=== PATIENT | female | born 1960 | race Caucasian/White ===

== ENCOUNTER 2017-03-11 11:17 | Emergency (ER) | payer BC ==
[~2017-03-11] VITALS: Ht 165.1 cm; Wt 99.8 kg
[2017-03-11 11:20] VITALS: BP 139/75; PULSE 78; RESP 16; TEMP 96.7; O2SAT 98
--- NOTE | 2017-03-11 11:29 | NUR ---
ER at bedside examining patient.
--- NOTE | 2017-03-11 11:30 | NUR ---
PT CAME IN FOR RIGHT SIDE KNEE PAIN, HX FALLING DOWN ON A CARPET YESTERDAY AT WORK. "I LOST MY BALANCE". SKIN INTACT, NO REDNESS, NO BUMPS.
[2017-03-11] MEDS ORDERED: KETOROLAC TROMETHAMINE 60 MG/2 ML VIAL IM ONE (11:45)
[2017-03-11 12:10] VITALS: RESP 18
--- NOTE | 2017-03-11 12:11 | NUR ---
TORADOL 60 MG IM WAS ADMINISTERED FOR RT KNEE PAIN.
--- NOTE | 2017-03-11 12:33 | NUR ---
RIGHT KNEE XRAY DONE.
--- NOTE | 2017-03-11 12:40 | NUR ---
PT STATED GOOD RELIEF OF DISCOMFORT AFTER INTERVENTION.
--- NOTE | 2017-03-11 13:33 | NUR ---
Patient given written and verbal discharge instructions and verbalizes understanding. ER MD DR MERCADO discussed with patient the results and treatment provided. Given copies of tests performed in ER. Patient in stable condition. ID arm band removed. Rx of IBUPROFEN given. Patient educated on pain management and to follow up with PMD. Pain Scale 0. Opportunity for questions provided and answered.
== END 2017-03-11 13:33 | disposition home or self-care (01) ==
LOC: SED 11:17
DX: S80.01XA Contusion of right knee, initial encounter (principal); E11.9 Type 2 diabetes mellitus without complications; I10 Essential (primary) hypertension; E03.9 Hypothyroidism, unspecified; W01.0XXA Fall on same level from slipping, tripping and stumbling without subsequent striking against object, initial encounter; Y93.89 Activity, other specified; Y92.89 Other specified places as the place of occurrence of the external cause; Y99.8 Other external cause status
CPT/HCPCS: 73564; 96372; 99284; J1885